=== PATIENT | female | born 1950 | race Caucasian/White ===

== ENCOUNTER 2022-10-28 11:51 | Inpatient (IN) | payer OTHER ==
--- NOTE | 2022-10-28 12:38 | RAD REPORT ---
EXAM DESCRIPTION: Garth Single View10/28/2022 12:22 pm CLINICAL HISTORY: Chest pain COMPARISON: 2018 FINDINGS: The lungs appear clear of acute infiltrate. The heart is normal size. Postsurgical changes involve the chest IMPRESSION: No acute abnormalities displayed
[2022-10-28 13:01] LABS: Absolute Lymphocytes (CBC) 2.6 K/uL (0.7-4.9); Lymphocytes % 29.8 % (15.3-44.8); MCV 92.5 fL (80-100); Platelets 308 thou/uL (152-406); RBC Red Blood Cell Count 4.86 M/uL (3.86-4.86)
[2022-10-28 13:20] LABS: Albumin 3.6 g/dL (3.4-5.0); Bilirubin Direct 0.2 mg/dL (0-0.2); Bilirubin Indirect, Calculated 0.2 mg/dL (0.2-0.8); Bilirubin Total 0.4 mg/dL (0.2-1.0); Magnesium 1.9 mg/dL (1.6-2.4); Potassium 3.7 mEq/L (3.5-5.1); Protein, Total 7.7 g/dL (6.4-8.2)
[2022-10-28 13:22] LABS: Troponin High Sensitivity 550.5 pg/mL (<58.9)
[2022-10-28] MEDS: ENOXAPARIN 80 MG/0.8 ML SQ SCH (14:00)
[2022-10-28] MEDS ORDERED: ENOXAPARIN 80 MG/0.8 ML SQ ONE (14:06)
--- NOTE | 2022-10-28 14:12 | ER ---
Nurse's Notes [facility] Name: Iliana Hair Age: 71 yrs Sex: Female : 1950 Arrival Date: 10/28/2022 Time: 11:51 Bed 3 Private MD: Diagnosis: Subsequent non-ST elevation (NSTEMI) myocardial infarction Presentation: 10/28 12:12 Chief complaint: Patient states: chest pain X 2 days , hx of [place], pain to left side of iw chest , also just feeling weak. Coronavirus screen: At this time, the client does not indicate any symptoms associated with coronavirus-19. Ebola Screen: Patient negative for fever greater than or equal to 101.5 degrees Fahrenheit, and additional compatible Ebola Virus Disease symptoms Patient denies exposure to infectious person. Patient denies travel to an Ebola-affected area in the 21 days before illness onset. No symptoms or risks identified at this time. Initial Sepsis Screen: Does the patient meet any 2 criteria? No. Patient's initial sepsis screen is negative. Does the patient have a suspected source of infection? No. Patient's initial sepsis screen is negative. Risk Assessment: Do you want to hurt yourself or someone else? Patient reports no desire to harm self or others. Onset of symptoms was October 26, 2022. 12:12 Method Of Arrival: Wheelchair iw 12:12 Acuity: BALWINDER 2 iw Triage Assessment: 12:19 General: Appears in no apparent distress. comfortable, Behavior is calm, cooperative. vg1 Pain: Complains of pain in chest Pain currently is 0 out of 10 on a pain scale. Quality of pain is described as pressure. Neuro: Level of Consciousness is awake, alert, obeys commands, Oriented to person, place, time, situation. Cardiovascular: Patient's skin is warm and dry. Respiratory: Airway is patent Respiratory effort is even, unlabored, Breath sounds are clear bilaterally. Denies shortness of breath. GI: No signs and/or symptoms were reported involving the gastrointestinal system. : No signs and/or symptoms were reported regarding the genitourinary system. Musculoskeletal: Circulation, motion, and sensation intact. Historical: - Allergies: 12:19 No Known Allergies; iw - Home Meds: 12:19 Metoprolol Tartrate Oral [Active]; iw - PMHx: 12:19 Hypertensive disorder; Hypercholesterolemia; iw - PSHx: 16:27 quadrupel bipass; cardiac stent; Coronary artery bypass graft; db - Immunization history:: Client reports receiving the 2nd dose of the Covid vaccine. - Social history:: Smoking status: "less than half a pack a day". - Family history:: not pertinent. Screenin:27 [facility] ED Fall Risk Assessment (Adult) History of falling in the last 3 months, db including since admission No falls in past 3 months (0 pts) Confusion or Disorientation No (0 pts) Intoxicated or Sedated No (0 pts) Impaired Gait No (0 pts) Mobility Assist Device Used No (0 pt) Altered Elimination No (0 pt) Score/Fall Risk Level 0 - 2 = Low Risk Oriented to surroundings, Maintained a safe environment. Abuse screen: Denies threats or abuse. Denies injuries from another. Nutritional screening: No deficits noted. Tuberculosis screening: No symptoms or risk factors identified. Assessment: 12:19 Reassessment: SEE TRIAGE. vg1 13:27 Reassessment: Patient appears in no apparent distress at this time. Patient and/or db family updated on plan of care and expected duration. Pain level reassessed. Patient is alert, oriented x 3, equal unlabored respirations, skin warm/dry/pink. General: Appears in no apparent distress. comfortable, Behavior is calm, cooperative. Pain:. Neuro: Level of Consciousness is awake, alert, obeys commands, Oriented to person, place, time, situation. 13:40 Reassessment: Hospitalist, DR Mayer at bedside. vg1 15:17 Reassessment: Patient appears in no apparent distress at this time. Patient and/or kc6 family updated on plan of care and expected duration. Pain level reassessed. Patient is alert, oriented x 3, equal unlabored respirations, skin warm/dry/pink. 16:03 Reassessment: Patient appears in no apparent distress at this time. Patient and/or kc6 family updated on plan of care and expected duration. Pain level reassessed. Patient is alert, oriented x 3, equal unlabored respirations, skin warm/dry/pink. 16:07 Reassessment: attempted to call report to second [facility] nurse station x2. no answer, line kc6 continually ringing. 16:24 Reassessment: Report given to JUDSON Mercado. Pain: Pain does not radiate. Pain began db gradually. Vital Signs: 12:12 BP 163 / 84; Pulse 72; Resp 18; Temp 97.6; Pulse Ox 97% on R/A; iw 12:19 BP 147 / 88; Pulse 67; Resp 18; Pulse Ox 97% on R/A; iw 13:52 BP 151 / 68; Pulse 70; Resp 20; Pulse Ox 98% on R/A; Weight 77.11 kg; vg1 14:30 BP 177 / 85; Pulse 70; Resp 19; Pulse Ox 97% on R/A; vg1 15:17 BP 176 / 83; Pulse 69; Resp 13 S; Pulse Ox 97% on R/A; kc6 16:00 BP 177 / 78; Pulse 69; Resp 16; Pulse Ox 95% on R/A; db ED Course: 11:53 Patient arrived in ED. mg5 11:55 Guru Bazzi MD is Attending Physician. rt 12:01 Keena Sinclair RN is Primary Nurse. vg1 12:13 Triage completed. iw 12:13 Arm band placed on. iw 12:20 Inserted saline lock: 20 gauge in right antecubital area, using aseptic technique. vg1 Blood collected. 12:20 No provider procedures requiring assistance completed. Patient maintains SpO2 vg1 saturation greater than 95% on room air. 12:24 XRAY Chest (1 view) In Process Unspecified. EDMS 13:26 Patient has correct armband on for positive identification. Placed in gown. Bed in low db position. Call light in reach. Side rails up X 1. Client placed on continuous cardiac and pulse oximetry monitoring. NIBP monitoring applied. Warm blanket given. 14:12 Jarret Mayer MD is Hospitalizing Provider. rt 15:17 Report received from Stephanie Sinclair RN. kc6 16:27 Patient admitted, IV remains in place. db 16:32 Provided Education on: ADMITTED. db Administered Medications: 14:06 Drug: Enoxaparin Sub-Q 1 mg/kg Route: Sub-Q; Site: right lower abdomen; vg1 14:58 Follow up: Response: No adverse reaction vg1 Medication: 13:30 VIS not applicable for this client. vg1 Outcome: 14:12 Decision to Hospitalize by Provider. rt 16:32 Admitted to ER Hold. [facility]. db 16:32 Condition: stable 16:32 Instructed on the need for admit. 16:49 Patient left the ED. db Signatures: Dispatcher [employer] EDVirginie Oseguera RN RN iw Keena Sinclair RN RN vg1 Linnea Cuevas RN RN kc6 Isa Abbott RN RN db Guru Bazzi MD MD rt [place], [place] mg5 Corrections: (The following items were deleted from the chart) 12:19 General: Appears in no apparent distress. comfortable, Behavior is calm, vg1 cooperative, iw 12:19 Pain: Complains of pain in chest Pain currently is 0 out of 10 on a pain scale. vg1 Quality of pain is described as pressure, iw 12:19 Neuro: Level of Consciousness is awake, alert, obeys commands, Oriented to vg1 person, place, time, situation, iw 12:19 Cardiovascular: Patient's skin is warm and dry. [email or web address] 12:19 Respiratory: Airway is patent Respiratory effort is even, unlabored, Breath vg1 sounds are clear bilaterally. Denies shortness of breath iw 12:19 GI: No signs and/or symptoms were reported involving the gastrointestinal system. vg1 iw 12:19 : No signs and/or symptoms were reported regarding the genitourinary system. [email or web address] 12:19 Musculoskeletal: Circulation, motion, and sensation intact. [email or web address]
--- NOTE | 2022-10-28 14:12 | EDPHYS ---
Physician Documentation [facility] Name: Iliana Hair Age: 71 yrs Sex: Female : 1950 Arrival Date: 10/28/2022 Time: 11:51 Bed 3 Private MD: ED Physician Guru Bazzi HPI: 10/28 15:55 This 71 yrs old Female presents to ER via Wheelchair with complaints of Chest Pain, Arm rt Pain - Left, Back Pain - Left. 15:55 Patient with history of coronary artery disease presents to the ED with intermittent rt chest pain and shortness of breath for the past 2 days. She states that she has no pain currently. She denies other acute complaint at this time. Symptoms are moderate severity, nonradiating, aching nature, no other aggravating relieving factors.. Historical: - Allergies: 12:19 No Known Allergies; iw - Home Meds: 12:19 Metoprolol Tartrate Oral [Active]; iw - PMHx: 12:19 Hypertensive disorder; Hypercholesterolemia; iw - PSHx: 16:27 quadrupel bipass; cardiac stent; Coronary artery bypass graft; db - Immunization history:: Client reports receiving the 2nd dose of the Covid vaccine. - Social history:: Smoking status: "less than half a pack a day". - Family history:: not pertinent. ROS: 15:55 Constitutional: Negative for fever, chills, and weight loss, MS/Extremity: Negative for rt injury and deformity, Skin: Negative for injury, rash, and discoloration, Neuro: Negative for headache, weakness, numbness, tingling, and seizure, Psych: Negative for depression, anxiety, suicide ideation, homicidal ideation, and hallucinations. 15:55 Cardiovascular: Positive for chest pain, Negative for edema. 15:55 Respiratory: Positive for shortness of breath, Negative for cough. Exam: 15:55 ECG was reviewed by the Attending Physician. rt Vital Signs: 12:12 BP 163 / 84; Pulse 72; Resp 18; Temp 97.6; Pulse Ox 97% on R/A; iw 12:19 BP 147 / 88; Pulse 67; Resp 18; Pulse Ox 97% on R/A; iw 13:52 BP 151 / 68; Pulse 70; Resp 20; Pulse Ox 98% on R/A; Weight 77.11 kg; vg1 14:30 BP 177 / 85; Pulse 70; Resp 19; Pulse Ox 97% on R/A; vg1 15:17 BP 176 / 83; Pulse 69; Resp 13 S; Pulse Ox 97% on R/A; kc6 16:00 BP 177 / 78; Pulse 69; Resp 16; Pulse Ox 95% on R/A; db MDM: 12:03 Patient medically screened. rt 15:55 Differential diagnosis: abnormal EKG, acute myocardial infarction, acute pericarditis, rt chest wall pain, congestive heart failure pneumonia, pneumothorax, unstable angina. HEART Score: History: Moderately Suspicious (1), ECG: Normal (0), Age: > or = 65 years (2), Risk Factors: > or = 3 Risk factors for atherosclerotic disease (2), Troponin: > or = 3 x Normal Limit (2), Total Score = 7. The patient was not given aspirin in the Emergency Department. Patient reports taking aspirin within the past 24 hours. Data reviewed: vital signs, nurses notes. Consideration of Admission/Observation Patient was admitted/placed on observation. Management of patient was discussed with the following: Director Of Extension Work: Discussed with cardiology. I considered the following discharge prescriptions or medication management in the emergency department Medications were administered in the Emergency Department. See MAR. Independent interpretation of the following test(s) in the Emergency Department X-Ray: My interpretation is No consolidation seen on interpretation of x-ray images. Test considered but Not performed: CT: Low suspicion for PE, CT angiogram not indicated. Care significantly affected by the following chronic conditions: Hypertension. Counseling: I had a detailed discussion with the patient and/or guardian regarding: the historical points, exam findings, and any diagnostic results supporting the discharge/admit diagnosis, the presence of at least one elevated blood pressure reading (>120/80) during this emergency department visit, lab results, radiology results, the need for further work-up and treatment in the hospital. 10/28 12:11 Order name: Basic Metabolic Panel; Complete Time: 13:26 rt 10/28 12:11 Order name: CBC with Diff; Complete Time: 13:26 rt 10/28 12:11 Order name: LFT's; Complete Time: 13:26 rt 10/28 12:11 Order name: Magnesium; Complete Time: 13:26 rt 10/28 12:11 Order name: NT PRO-BNP; Complete Time: 13:26 rt 08 12:11 Order name: Troponin HS; Complete Time: 13:26 rt 08 15:39 Order name: Urinalysis w/ reflexes EDMS 10/28 15:39 Order name: Basic Metabolic Panel EDMS 10/28 15:39 Order name: Basic Metabolic Panel EDMS 10/28 15:39 Order name: CBC with Automated Diff EDMS 10/28 15:39 Order name: CBC with Automated Diff EDMS 10/28 15:39 Order name: Magnesium EDMS 10/28 15:39 Order name: Magnesium EDMS 10/28 15:39 Order name: Troponin High Sensitivity EDMS 10/28 15:39 Order name: Troponin High Sensitivity EDMS 10/28 15:39 Order name: Troponin High Sensitivity EDMS 10/28 15:39 Order name: Troponin High Sensitivity EDMS 10/28 12:11 Order name: XRAY Chest (1 view); Complete Time: 12:41 rt 10/28 12:11 Order name: EKG; Complete Time: 12:11 rt 10/28 15:37 Order name: CONS Physician Consult EDMS 10/28 15:39 Order name: Heart Healthy EDMS 10/28 15:39 Order name: NPO EDMS 10/28 12:11 Order name: Cardiac monitoring; Complete Time: 12:19 rt 08 12:11 Order name: EKG - Nurse/Tech; Complete Time: 12:19 rt 10/28 12:11 Order name: IV Saline Lock; Complete Time: 12:19 rt 08 12:11 Order name: Labs collected and sent; Complete Time: 12:19 rt 10/28 12:11 Order name: O2 Per Protocol; Complete Time: 12:19 rt 08 12:11 Order name: O2 Sat Monitoring; Complete Time: 12:19 rt EC:55 Rate is 70 beats/min. Rhythm is regular, Normal Sinus Rhythm with No ectopy. QRS [place] rt is Normal. [place] interval is normal. QRS interval is normal. QT interval is normal. No Q waves. T waves are Normal. No ST changes noted. Interpreted by me. Administered Medications: 14:06 Drug: Enoxaparin Sub-Q 1 mg/kg Route: Sub-Q; Site: right lower abdomen; vg1 14:58 Follow up: Response: No adverse reaction vg1 Disposition: 15:55 Critical Care:. rt Disposition Summary: 10/28/22 14:12 Hospitalization Ordered Hospitalization Status: Inpatient Admission rt Provider: Jarret Mayer rt [facility] rt Condition: Fair rt Problem: new rt Symptoms: have improved rt Bed/Room Type: Standard rt Room Assignment: 202(10/28/22 16:01) eb Diagnosis - Subsequent non-ST elevation (NSTEMI) myocardial infarction rt Forms: - Medication Reconciliation Form rt - SBAR form rt Critical care time excluding procedures: 15:55 Critical care time: Bedside Care: 30 minutes, Consultation: 10 minutes. Total time: 40 rt minutes Signatures: Dispatcher [employer] EDVirginie Oseguera RN RN iw Jeannie Saha Victoria RN RN vg1 Isa Abbott RN RN db Guru Bazzi MD MD rt Corrections: (The following items were deleted from the chart) 16:01 14:12 rt eb
--- NOTE | 2022-10-28 14:47 | P.HP ---
Certification for Inpatient Patient admitted to: Inpatient With expected LOS: >2 Midnights Practitioner: I am a practitioner with admitting privileges, knowledge of patient current condition, hospital course, and medical plan of care. Services: Services provided to patient in accordance with Admission requirements found in Title 42 Section 412.3 of the Code of Federal Regulations Patient History Date of Service: 10/28/22 Reason for admission: NSTEMI History of Present Illness: 71 yo F, PMH: Hypertension, Hypercholesterolemia, h/o of DC s/p CABGx4 (), current smoker Presents to ED due to 2 days of intermittent chest pressure/tightness. Symptoms began while sitting down on her cough. Her chest pressure is substernal and lasts a few seconds to minutes and has ~3-4 episodes a day. She reports prior DC and had CABGx4 in , continues to smoke, currently down to 1/2 ppd. Takes aspirin 325mg and anti-hypertensive medications. Recently saw Dr. Garcia ~3 months ago for routine check up. She reports undergoing echo and stress test which she was told were normal. Denies any recent fever, no rashes. Denies UTI symptoms. No n/v/d. No shortness of breath. No edema. Denies vision changes. Dr. Garcia notified and will see as consult. In the ED, labwork was rather unremarkable except for troponin: 550, BNP: 1049. Chest xray was negative for any acute abnormalities. Allergies No Known Allergies Allergy (Verified 10/28/22 17:10) Home Medications: Aspirin Chewable [Aspirin Chewable*] 325 mg PO DAILY 10/28/22 Atorvastatin Calcium [Lipitor] 40 mg PO BEDTIME 10/28/22 Metoprolol Tartrate [Lopressor] 50 mg PO BID 10/28/22 Valsartan/Hydrochlorothiazide [Valsartan-Hctz 160-25 mg Tab] 1 tab PO DAILY 09/14 - Past Medical/Surgical History -: h/o DC -: Hypertension -: Hypercholesterolemia -: CABGx4 - -: Scoliosis - Family History Family History: Reviewed- Non-Contributory - Social History Smoking Status: Current every day smoker (< 1/2 pack a day) Alcohol use: No Place of Residence: Home Review of Systems 10-point ROS is otherwise unremarkable Physical Examination - Studies Laboratory Data (last 24 hrs) 10/28/22 10/28/22 12:15 12:15 WBC 8.80 Hgb 15.1 H Hct 45.0 Plt Count 308 Sodium 142 Potassium 3.7 BUN 23 H Creatinine 1.03 H Glucose 121 H Magnesium 1.9 Total Bilirubin 0.4 AST 27 ALT 30 Alkaline Phosphatase 97 Assessment and Plan - Advance Directives Does patient have a Living Will: No Does patient have a Durable POA for Healthcare: No - Code Status/Comfort Care Code Status Assessed: Yes Code Status: Full Code Physician Review Additional Text: Physical Exam: GEN: Alert, oriented, NAD HEENT: Normal conjunctiva, sclera anicteric CV: Regular rate and rhythm, no edema Pulm: Nonlabored respirations on room air, clear bilaterally ABD: Soft, nontender, nondistended MSK: No joint tenderness, no contractions Integumentary: No rashes, no lesions Neuro: Normal speech, normal affect vitals reviewed Problem List: NSTEMI; Unstable angina h/o DC s/p CABGx4 () Hypertension Hypercholesterolemia Nicotine dependence reports outpatient workup ~[address] Garcia stress test, echo okay per patient CXR (10/28): no acute abnormalities Cardiology consulted continue therapeutic lovenox - received first dose in ED Trend troponins - elevated (550) BNP: 1049 telemetry aspirin given in ED, continue continue home metoprolol - 50mg BID morphine PRN SL nitro PRN confirm home medications, restart as appropriate VTE: therapeutic lovenox Code: Full Home: ~2 days possible cath tomorrow, pending cardio consult Time Spent Managing Pts Care (In Minutes): 70
[2022-10-28] MEDS ORDERED: ONDANSETRON 4 MG/2 ML VIAL IV PRN (15:35)
[2022-10-28] MEDS ORDERED: MORPHINE 2 MG/ML SYR IV PRN (15:38)
[2022-10-28] MEDS ORDERED: NITROGLYCERIN 0.4 MG/TAB SL PRN (15:38)
[2022-10-28] MEDS: METOPROLOL TAR 50 MG TAB PO SCH (16:43)
[2022-10-28] MEDS ORDERED: METOPROLOL TAR 50 MG TAB ONE (16:52)
[2022-10-28 19:50] LABS: Specific Gravity 1.013 (1.005-1.030); Urine Bacteria None Seen /HPF (<20); Urine Bilirubin NEGATIVE (Negative); Urine Blood 1+ (Negative); Urine Clarity Clear (Clear); Urine Color Light-Yellow (Yellow); Urine Glucose NEGATIVE (Negative); Urine Mucus Slight /HPF (None Seen); Urine Protein NEGATIVE (Negative); Urine Urobilinogen Normal (Normal)
[2022-10-29] MEDS: ENOXAPARIN 80 MG/0.8 ML SQ SCH ×2 (02:35→13:48)
[2022-10-29 03:15] LABS: Absolute Lymphocytes (CBC) 4.1 K/uL (0.7-4.9); Hematocrit 41.3 % (36.0-45.0); Lymphocytes % 42.9 % (15.3-44.8); MCV 92.1 fL (80-100); MPV 7.9 fL (7.6-11.3); Platelets 268 thou/uL (152-406); RBC Red Blood Cell Count 4.48 M/uL (3.86-4.86)
[2022-10-29 03:46] LABS: Magnesium 1.9 mg/dL (1.6-2.4); Potassium 3.5 mEq/L (3.5-5.1)
[2022-10-29 04:01] LABS: Troponin High Sensitivity 524.6 pg/mL (<58.9)
[2022-10-29] MEDS ORDERED: KCL 20 MEQ/100 mL IVPB 20 MEQ/100 ML BAG IV SCH (06:00)
--- NOTE | 2022-10-29 07:00 | P.PN ---
Date of Service: 10/29/22 Subjective: feeling better today - back to normal self chest pressure resolved overnight no new / worsening problems ROS: 10 point ROS as noted above, otherwise negative Physical Exam: GEN: Alert, oriented, NAD HEENT: Normal conjunctiva, sclera anicteric CV: Regular rate and rhythm, no edema Pulm: Nonlabored respirations on room air ABD: Soft, nontender, nondistended Neuro: Normal speech, normal affect vitals reviewed Problem List: NSTEMI; Unstable angina h/o [place] s/p CABGx4 () Hypertension Hypercholesterolemia Nicotine dependence reports outpatient workup ~[address] Garcia stress test, echo okay per patient CXR (10/28): no acute abnormalities Cardiology consulted cardiac cath planned for tomorrow continue therapeutic lovenox - received first dose in ED troponins elevated x4 - peak 627 BNP: 1049 telemetry given aspirin in ED cont morphine PRN, SL nitro PRN continue home medications including - Valsartan, statin, metoprolol VTE: therapeutic lovenox Code: Full Home: ~1 day Pending cath
[2022-10-29] MEDS: METOPROLOL TAR 50 MG TAB PO SCH ×2 (08:40→16:53)
[2022-10-29] MEDS ORDERED: HYDROCHLOROTHIAZIDE PO SCH (09:16)
[2022-10-29] MEDS ORDERED: VALSARTAN PO SCH (09:16)
[2022-10-29] MEDS: VALSARTAN 160 MG TAB PO SCH (09:20)
[2022-10-29] MEDS: hydroCHLOROthiazide 25 MG TAB PO SCH (10:41)
[2022-10-29] MEDS ORDERED: POTASSIUM CL SA 10 MEQ TAB PO ONE (11:00)
--- NOTE | 2022-10-29 13:03 | EKG ---
Test Date: 2022-10-28 Test Time: 12:08:09 Detective: AP MEASUREMENT RESULTS: Intervals: Rate: 70 DE: 136 QRSD: 84 QT: 400 QTc: 432 [place]: P: 27 DE: 136 QRS: 34 T: 68 INTERPRETIVE STATEMENTS: Normal sinus rhythm Normal ECG Compared to ECG 07/28/1996 05:29:00 Myocardial infarct finding no longer present Electronically Signed On 10-29-22 13:00:37 CDT by Rip Garcia
[2022-10-29 17:49] VITALS: BMI 25.7
[2022-10-29] MEDS: ATORVASTATIN 40 MG TAB PO SCH (20:46)
[2022-10-30 04:24] LABS: Potassium 4.2 mEq/L (3.5-5.1)
[2022-10-30] MEDS ORDERED: NA CHLORIDE 0.9% 1,000 ML ONE (06:25)
[2022-10-30] MEDS ORDERED: NA CHLORIDE 0.9% 1,000 ML IV SCH (07:00)
[2022-10-30] MEDS: METOPROLOL TAR 50 MG TAB PO SCH ×3 (08:00→20:40)
[2022-10-30] MEDS: hydroCHLOROthiazide 25 MG TAB PO SCH (09:00)
[2022-10-30] MEDS ORDERED: HYDROCHLOROTHIAZIDE PO SCH (09:00)
[2022-10-30] MEDS: VALSARTAN 160 MG TAB PO SCH (09:00)
[2022-10-30] MEDS ORDERED: VALSARTAN PO SCH (09:00)
[2022-10-30] MEDS ORDERED: HEPA 1000U/500MLS 2,000 UNIT/1,000 ML BAG IV ONE (15:46)
[2022-10-30] MEDS ORDERED: LIDOCAINE 1% 20 ML MDV ONE (15:46)
[2022-10-30] MEDS ORDERED: FENTANYL CITR 100 MCG/2 ML ONE ×3 (15:47→17:03)
[2022-10-30] MEDS ORDERED: HEPARIN 10,000 UNIT/10 ML VIAL IV ONE (15:48)
[2022-10-30] MEDS ORDERED: TICAGRELOR 90 MG TABLET PO ONE (15:48)
[2022-10-30] MEDS ORDERED: ATROPINE SULF 1 MG/10 ML SYR IV ONE (15:48)
[2022-10-30] MEDS ORDERED: MIDAZOLAM HCL 2 MG/2 ML INJ ONE ×2 (15:48→16:39)
[2022-10-30] MEDS ORDERED: CLOPIDOGREL 75 MG TABLET ONE (15:48)
--- NOTE | 2022-10-30 16:24 | CON ---
Date of Consultation: 10/29/2022 Reason For Consultation: Chest pain and elevated troponin. History Of Present Illness: A 71-year-old female with history of dyslipidemia, hypertension, coronar y artery disease, status post CABG in 2019, 4-vessel. She currently is a smoker, presented with inte rmittent chest pain and tightness along with cough and some shortness of breath, mild lower extremity edema. Pain is related to exertion. She denies having any other complaints. No nausea, vomiting, or diarrhea. Past Medical History: As outlined above in the HPI. Medications: Refer to reconciliation sheet for detailed list. Allergies: NO KNOWN DRUG ALLERGIES. Family History: No premature coronary artery disease or cancer. Social History: She is active smoker. Does not drink or use any drugs. Review of Systems: All systems reviewed and they were negative except what mentioned in HPI. Physical Examination: Vital Signs: Reviewed. Head and Neck: Pupils are equal, reactive to light. Intact eye movements. No JVD. No cervical lym phadenopathy. Neck is supple. Thyroid is not enlarged. Lungs: Clear to auscultation bilaterally. No rhonchi, wheezing, or crackles. No accessory muscle u se. Heart: Regular rate and rhythm. No extra sounds. Abdomen: Soft, nontender. Bowel sounds positive. No organomegaly. No masses or hernia. No rigidi ty or rebound. Extremities: No edema, clubbing, or cyanosis. Intact pulses. Skin: No rash. Neurologic: Alert, awake, oriented x3. No acute focal deficits appreciated. Investigations: Troponin peaked at 658 and trending down. BUN 21, creatinine 0.82, and hemoglobin i s 13.9 with white blood cell count is 9.6. Assessment And Recommendations: 1.Non-ST elevation myocardial infarction. Continue aspirin and statin, and keep n.p.o. past midnigh t for coronary angiogram tomorrow and continue IV Lovenox. 2.Dyslipidemia. Continue statin. 3.Active smoker. The patient was counseled to quit. 4.Hypertension. Blood pressure is borderline. Resume home medication and adjust further if needed. SR/MODL Voice ID: [id number] Report ID: [id number]
--- NOTE | 2022-10-30 16:30 | PN ---
Date of Progress Note: 10/30/2022 Subjective: Seen by bedside. No further chest pain. Review of Systems: No chest pain, shortness of breath, orthopnea, cough. No nausea, vomiting, diarrhea. All other syst ems reviewed and they were negative. Physical Examination: Vital Signs: Reviewed. Head and Neck: Pupils are equal, reactive to light. Intact eye movements. No JVD. No cervical lym phadenopathy. Neck is supple. Thyroid is not enlarged. Lungs: Clear to auscultation bilaterally. No rhonchi, wheezing, or crackles. No accessory muscle u se. Heart: Regular rate and rhythm. No extra sounds. Abdomen: Soft, nontender. Bowel sounds positive. No organomegaly. No masses or hernia. No rigidi ty or rebound. Extremities: No edema, clubbing, or cyanosis. Intact pulses. Skin: No rash. Neurologic: Alert, awake, oriented x3. No acute focal deficits appreciated. Investigations: BUN 25, creatinine 0.9. Assessment And Recommendations: 1.Non-ST elevation myocardial infarction. She is n.p.o. We will plan for coronary angiogram today. Hold morning dose of Lovenox and continue aspirin. Further plan after the angiogram. 2.Dyslipidemia. Continue statin. 3.Hypertension. Blood pressure is controlled. Continue current management. /HANNA Voice ID: [id number] Report ID: [id number]
--- NOTE | 2022-10-30 17:30 | OP ---
Date of Procedure: 10/30/2022 Surgeon: SERGIO CARRIZALES Procedures Performed: 1.Selective coronary angiogram with bypass graft study. 2.Left heart catheterization. Indication: Non-ST elevation myocardial infarction. Access: Right femoral artery 6-Burkinan closed with StarClose. Complications: None. Bleeding: Less than 20 mL. Anesthesia: Total sedation time was 1 hour, used fentanyl and Versed. Description Of Procedure: After risks, benefits, and alternatives were explained, the patient agreed to procedure and signed informed consent. The patient was brought into the cardiac catheterization laboratory, prepped and draped in the usual sterile fashion. Then, I accessed right femoral artery u sing micropuncture kit, ultrasound guidance, fluoroscopy, and placed 6-Burkinan [place] sheath and too k a 6-Burkinan JL4 catheter over J-wire into the aortic root, engaged left main, took standard views an d then exchanged for 6-Burkinan JR4 catheter into the aortic root, engaged the RCA and the SVG to OM, S VG to RCA and then occluded SVG, and took standard views and then engaged the EDWARDS and took standard views, and then removed the catheter and removed the sheath. StarClose was used for closure with goo d hemostasis. Findings: 1.Left main; proximal 50%, distal 90%. 2.LAD; 100% occluded ostially. 3.Left circumflex; 99% occluded ostially. 4.RCA is 100% occluded proximally. Graft Study: 1.Widely patent EDWARDS to LAD. 2.SVG to OM is patent with proximal 60% stenosis with ulceration and distal at the touchdown 95% to 99% stenosis with a thrombus present. 3.Patent SVG graft to RCA, but it is dilated with slow flow. 4.There is an SVG graft that is occluded. I am not sure probably was connected to 1 of the diagonal s. 5.Elevated LVEDP at 26 mmHg. Conclusions: 1.Severe multivessel [place] coronary artery disease, basically occluded to all major arteries. 2.Patent EDWARDS to LAD and patent SVG to RCA and diseased SVG to OM as outlined above. 3.Elevated LVEDP. Plan: I will start her on heparin 4 hours post sheath removal and revisit in 48 to 72 hours and put her on dual anti-platelet therapy and might plan to do a PCI at that time. The patient is chest pain free. We will obtain an echo and plan as above. SR/HANNA Voice ID: [id number] Report ID: [id number]
[2022-10-30] MEDS: ATORVASTATIN 40 MG TAB PO SCH (20:35)
[2022-10-30] MEDS: HEPARIN/D5W 25,000 UNIT/500 ML BAG IV PRN (20:35)
[2022-10-31] MEDS: VALSARTAN 160 MG TAB PO SCH (08:17)
[2022-10-31] MEDS: hydroCHLOROthiazide 25 MG TAB PO SCH (08:18)
[2022-10-31] MEDS: METOPROLOL TAR 50 MG TAB PO SCH ×2 (08:21→19:41)
--- NOTE | 2022-10-31 12:48 | P.PN ---
Subjective Date of Service: 10/30/22 Chief Complaint: NSTEMI Patient denies any chest pain or shortness of breath. Physical Examination - Vital Signs Temperature: 97.7 F Pulse: 61 Respirations: 16 Pulse Ox (%): 96 Assessment And Plan - Plan Physical Exam: GEN: Alert, oriented, NAD HEENT: Normal conjunctiva, sclera anicteric CV: Regular rate and rhythm, no edema Pulm: Clear to auscultation bilaterally ABD: Soft, nontender, nondistended Neuro: Normal speech, normal affect vitals reviewed Problem List: NSTEMI; Unstable angina h/o PA s/p CABGx4 () Hypertension Hypercholesterolemia Nicotine dependence Plan: Troponins elevated x4 - peak 627 Cardiology consulted Patient seen by Dr. Garcia who has scheduled cardiac cath for today. Heparin drip and repeat PCI by Dr. Garcia. Monitor vitals and for chest pain. Continue to telemetry. Dual antiplatelet per Dr. Garcia. Statin, metoprolol. Continue valsartan VTE: On heparin Code: Full Home: Home upon discharge.
--- NOTE | 2022-10-31 13:01 | P.PN ---
Subjective Date of Service: 10/31/22 Chief Complaint: NSTEMI Patient has no new complaint. Status postcardiac cath yesterday. Physical Examination - Vital Signs Temperature: 97.7 F Blood Pressure: 132/61 Pulse: 61 Respirations: 16 Pulse Ox (%): 96 Assessment And Plan - Plan Physical Exam: GEN: Alert, oriented, NAD HEENT: Normal conjunctiva, sclera anicteric CV: Regular rate and rhythm, no edema Pulm: Clear to auscultation bilaterally ABD: Soft, nontender, nondistended Neuro: Normal speech, normal affect vitals reviewed Problem List: NSTEMI; Unstable angina h/o OR s/p CABGx4 () Hypertension Hypercholesterolemia Nicotine dependence Plan: Troponins elevated x4 - peak [address] Garcia who performed cardiac cath. Cardiac cath report severe multiple vessel diseases. Heparin drip and repeat PCI by Dr. Garcia. Monitor vitals and for chest pain. Continue to telemetry. Dual antiplatelet per Dr. Garcia. Statin, metoprolol. Continue valsartan VTE: On heparin Code: Full Home: Home upon discharge.
[2022-10-31] MEDS: CLOPIDOGREL 75 MG TABLET PO SCH (13:05)
[2022-10-31] MEDS: ASPIRIN EC 81 MG TAB PO SCH (19:41)
[2022-10-31] MEDS: ACETAMINOPHEN 500 MG TAB PO PRN (19:44)
[2022-10-31] MEDS: ATORVASTATIN 40 MG TAB PO SCH (20:01)
[2022-10-31] MEDS ORDERED: CLOPIDOGREL 75 MG TABLET PO ONE (21:00)
--- NOTE | 2022-10-31 21:35 | PN ---
Date of Progress Note: 10/31/2022 Subjective: Seen by bedside. No chest pain. Tolerated anticoagulants very well. Review of Systems: No chest pain, shortness of breath, orthopnea, cough. No nausea, vomiting, diarrhea. All other syst ems reviewed are negative. Physical Examination: Vital signs: Reviewed. Head and Neck: Pupils are equal, reactive to light. Intact eye movements. No JVD. No cervical lym phadenopathy. Neck: Supple. Thyroid is not enlarged. Lungs: Clear to auscultation bilaterally. No rhonchi, wheezing, or crackles. No accessory muscle u se. Heart: Regular rate and rhythm. No extra sounds. Abdomen: Soft, nontender. Bowel sounds positive. No organomegaly. No masses or hernia. No rigidi ty or rebound. Extremities: No edema, clubbing, or cyanosis. Intact pulses. Skin: No rash. Neurologic: Alert, awake, oriented x3. No acute focal deficits appreciated. Investigations: BUN 25, creatinine 0.9. Troponin peaked at 627, trending down and on echo, her ejec tion fraction is normal. Assessment/recommendations: 1.Non-ST elevation myocardial infarction, status post coronary angiogram yesterday. She has large t hrombus burden on the SVG graft to OM. Plan to continue dual antiplatelet with aspirin, Plavix, and continue IV heparin for at least 2 more days and we will revisit the coronaries either by Saturday or e gia next week and hoping that the thrombus burden is diminished and then we will plan for percutaneo us coronary intervention. 2.Dyslipidemia. Start the patient on Lipitor 40 mg at bedtime. 3.Hypertension. Blood pressure is controlled. SR/MODL Voice ID: [id number] Report ID: [id number]
--- NOTE | 2022-11-01 08:09 | ECHO ---
HEIGHT: 5 ft 8 in WEIGHT: 168 lb 12.8 oz DATE OF STUDY: 10/31/[address]: Rip Garcia 2-DIMENSIONAL: YES M.MODE: YES DOPPLER: YES COLOR FLOW: YES TDS: PORTABLE: YES DEFINITY: BUBBLE STUDY: DIAGNOSIS: POST CATH CARDIAC HISTORY: CATHERIZATION: YES SURGERY: YES PROSTHETIC VALVE: NO PACEMAKER: NO MEASUREMENTS (cm) DIASTOLIC (NORMALS) SYSTOLIC (NORMALS) IVSd 0.9 (0.6-1.2) LA Diam 2.6 (1.9-4.0) LVEF 72% LVIDd 4.5 (3.5-5.7) LVIDs 2.7 (2.0-3.5) %FS 41% LVPWd 1.0 (0.6-1.2) Ao Diam 2.4 (2.0-3.7) 2 DIMENSIONAL ASSESSMENT: RIGHT ATRIUM: NORMAL LEFT ATRIUM: NORMAL RIGHT VENTRICLE: NORMAL LEFT VENTRICLE: NORMAL TRICUSPID VALVE: NORMAL MITRAL VALVE: CALCIFIED MITRAL VALVE PULMONIC VALVE: NORMAL AORTIC VALVE: NORMAL PERICARDIAL EFFUSION: NONE AORTIC ROOT: NORMAL LEFT VENTRICULAR WALL MOTION: NORMAL DOPPLER/COLOR FLOW: NORMAL COMMENTS: 1. NORMAL LEFT VENTRICULAR EJECTION FRACTION 60-65% 2. NORMAL WALL MOTION 3. NORMAL DIASTOLIC FUNCTION TECHNOLOGIST: DONTRELL VASQUEZ
[2022-11-01] MEDS: ASPIRIN EC 81 MG TAB PO SCH (08:30)
[2022-11-01] MEDS: VALSARTAN 160 MG TAB PO SCH (08:30)
[2022-11-01] MEDS: hydroCHLOROthiazide 25 MG TAB PO SCH (08:31)
[2022-11-01] MEDS: CLOPIDOGREL 75 MG TABLET PO SCH (08:31)
[2022-11-01] MEDS: METOPROLOL TAR 50 MG TAB PO SCH ×2 (08:31→17:33)
[2022-11-01] MEDS: HEPARIN/D5W 25,000 UNIT/500 ML BAG IV PRN (08:32)
--- NOTE | 2022-11-01 13:29 | P.PN ---
Subjective Date of Service: 11/01/22 Chief Complaint: NSTEMI Patient has no new complaint. Status postcardiac cath 10/30/2022. She denies any chest pain. Physical Examination - Vital Signs Temperature: 97.8 F Blood Pressure: 133/70 Pulse: 64 Respirations: 16 Pulse Ox (%): 97 Assessment And Plan - Plan Physical Exam: GEN: Alert, oriented, NAD HEENT: Normal conjunctiva, sclera anicteric CV: Regular rate and rhythm, no edema Pulm: Clear to auscultation bilaterally ABD: Soft, nontender, nondistended Neuro: Normal speech, normal affect vitals reviewed Problem List: NSTEMI; Unstable angina h/o [place] s/p CABGx4 () Hypertension Hypercholesterolemia Nicotine dependence Plan: Troponins elevated x4 - peak [address] Garcia who performed cardiac cath. Cardiac cath report severe multiple vessel diseases. Heparin drip and repeat PCI by Dr. Garcia. Monitor vitals and for chest pain. Continue to telemetry. Dual antiplatelet per Dr. Garcai. Statin, metoprolol. Continue valsartan VTE: On heparin drip Code: Full Home: Home upon discharge.
--- NOTE | 2022-11-01 15:03 | PN ---
Date of Progress Note: 11/01/2022 Subjective: Seen by bedside. No chest pain. Review of Systems: No chest pain, shortness of breath, orthopnea, cough. No nausea, vomiting, diarrhea. All other syst ems reviewed are negative. Physical Examination: Vital Signs: Reviewed. Head and Neck: Pupils are equal, reactive to light. Intact eye movements. No JVD. No cervical lym phadenopathy. Neck is supple. Thyroid is not enlarged. Lungs: Clear to auscultation bilaterally. No rhonchi, wheezing, or crackles. No accessory muscle u se. Heart: Regular rate and rhythm. No extra sounds. Abdomen: Soft, nontender. Bowel sounds positive. No organomegaly. No masses or hernia. No rigidi ty or rebound. Extremities: No edema, clubbing, cyanosis. Intact pulses. Skin: No rashes Neurologic: Alert, awake, oriented x3. No focal deficits appreciated. Investigations: BUN 25, creatinine 0.9. Hemoglobin 13.9. Assessment/recommendations: 1.Non-ST elevation myocardial infarction. SVG graft has large burden of thrombus. Continue anticoa gulation through the weekend and plan for a coronary angiogram on Saturday to plan for percutaneous cor onary intervention of the SVG graft to the OM and continue aspirin and Plavix. On echo, her ejection fraction is entirely normal and no significant suture abnormality. 2.Dyslipidemia. Continue statin. 3.Hypertension. Blood pressure is controlled. Continue current treatment. SR/MODL Voice ID: [id number] Report ID: [id number]
[2022-11-01] MEDS: POLYETHYL GLY 3350 17 GM/DOSE PO SCH (20:48)
[2022-11-01] MEDS: ATORVASTATIN 40 MG TAB PO SCH (20:51)
[2022-11-02 03:39] LABS: Potassium 3.4 mEq/L (3.5-5.1)
[2022-11-02] MEDS: CLOPIDOGREL 75 MG TABLET PO SCH (08:18)
[2022-11-02] MEDS: hydroCHLOROthiazide 25 MG TAB PO SCH (08:18)
[2022-11-02] MEDS: POLYETHYL GLY 3350 17 GM/DOSE PO SCH ×2 (08:18→20:01)
[2022-11-02] MEDS: ASPIRIN EC 81 MG TAB PO SCH (08:19)
[2022-11-02] MEDS: METOPROLOL TAR 50 MG TAB PO SCH ×2 (08:19→16:35)
[2022-11-02] MEDS: VALSARTAN 160 MG TAB PO SCH (08:20)
[2022-11-02] MEDS ORDERED: POTASSIUM 25 MEQ EFFERV TAB PO ONE (09:00)
--- NOTE | 2022-11-02 12:18 | P.PN ---
Subjective Date of Service: 11/02/22 Chief Complaint: NSTEMI Patient has no new complaint. She denies any chest pain. No issues overnight. Physical Examination - Vital Signs Temperature: 97.7 F Blood Pressure: 100/64 Pulse: 76 Respirations: 16 Pulse Ox (%): 97 Assessment And Plan - Plan Physical Exam: GEN: Alert, oriented, NAD HEENT: Normal conjunctiva, sclera anicteric CV: Regular rate and rhythm, no edema Pulm: Clear to auscultation bilaterally ABD: Soft, nontender, nondistended Neuro: Normal speech, normal affect vitals reviewed Problem List: NSTEMI; Unstable angina h/o [place] s/p CABGx4 () Hypertension Hypercholesterolemia Nicotine dependence Plan: Troponins elevated x4 - peak [address] Garcia who performed cardiac cath. Cardiac cath report severe multiple vessel diseases. Heparin drip and repeat PCI by Dr. Garcia. Monitor vitals and for chest pain. Continue to telemetry. Dual antiplatelet per Dr. Garcia. Statin, metoprolol. Continue valsartan Dr. Garcia is considering repeat PCI on Saturday. VTE: On heparin drip Code: Full Home: Home upon discharge.
[2022-11-02] MEDS: HEPARIN/D5W 25,000 UNIT/500 ML BAG IV PRN (20:01)
[2022-11-02] MEDS: ATORVASTATIN 40 MG TAB PO SCH (20:01)
[2022-11-03 06:04] LABS: Absolute Lymphocytes (CBC) 2.7 K/uL (0.7-4.9); Hematocrit 42.5 % (36.0-45.0); Lymphocytes % 29.4 % (15.3-44.8); MCV 91.9 fL (80-100); Platelets 266 thou/uL (152-406); RBC Red Blood Cell Count 4.62 M/uL (3.86-4.86)
[2022-11-03 06:18] LABS: Magnesium 2.3 mg/dL (1.6-2.4); Potassium 4.1 mEq/L (3.5-5.1)
[2022-11-03] MEDS: CLOPIDOGREL 75 MG TABLET PO SCH (08:32)
[2022-11-03] MEDS: VALSARTAN 160 MG TAB PO SCH (08:32)
[2022-11-03] MEDS: ASPIRIN EC 81 MG TAB PO SCH (08:32)
[2022-11-03] MEDS: METOPROLOL TAR 50 MG TAB PO SCH ×2 (08:32→17:16)
[2022-11-03] MEDS: hydroCHLOROthiazide 25 MG TAB PO SCH (08:32)
[2022-11-03] MEDS: POLYETHYL GLY 3350 17 GM/DOSE PO SCH ×2 (08:33→20:15)
--- NOTE | 2022-11-03 10:17 | PN ---
Date of Progress Note: 11/02/2022 Subjective: Seen at bedside, no chest pain, resting comfortably. Review of Systems: No chest pain, shortness of breath, orthopnea, cough. No nausea, vomiting, diarrhea. No abdominal p ain. All other systems reviewed and they were negative. Physical Examination: Vital Signs: Reviewed. Head and Neck: Pupils are equal, reactive to light. Intact eye movements. No JVD. No cervical lym phadenopathy. Neck: Supple. Thyroid is not enlarged. Lungs: Clear to auscultation bilaterally. No rhonchi, rales, or crackles. No accessory muscle use. Heart: Regular rate and rhythm. No extra sounds. Abdomen: Soft, nontender. Bowel sounds positive. No organomegaly. No masses or hernia. No rigidi ty or rebound. Extremities: No edema, clubbing, or cyanosis. Intact pulses. Skin: No rash. Neurologic: Alert, awake, and oriented x3. . No acute focal deficits appreciated. Investigations: BUN 27, creatinine 0.96. PTT is therapeutic. Hemoglobin is 13.9. Assessment/recommendation: 1.Non-ST elevation myocardial infarction due to SVG graft stenosis with thrombosis that migrated to the coronary artery. Continue IV heparin and we will plan for coronary angiogram and PCI early Monda y morning. Continue aspirin and Plavix. 2.Dyslipidemia. Continue statin. 3.Hypertension. Blood pressure is controlled. Continue current management. /HANNA Voice ID: [id number] Report ID: [id number]
--- NOTE | 2022-11-03 12:19 | P.PN ---
Subjective Date of Service: 11/03/22 Chief Complaint: NSTEMI Patient has no new complaint. She denies any chest pain. Physical Examination - Vital Signs Temperature: 97.6 F Blood Pressure: 109/58 Pulse: 66 Respirations: 16 Pulse Ox (%): 95 Assessment And Plan - Plan Physical Exam: GEN: Alert, oriented, NAD HEENT: Normal conjunctiva, sclera anicteric CV: Regular rate and rhythm, no edema Pulm: Clear to auscultation bilaterally ABD: Soft, nontender, nondistended Neuro: Normal speech, normal affect vitals reviewed Problem List: NSTEMI; Unstable angina h/o [place] s/p CABGx4 () Hypertension Hypercholesterolemia Nicotine dependence Plan: Troponins elevated x4 - peak [address] Garcia who performed cardiac cath. Cardiac cath report severe multiple vessel diseases. Heparin drip and repeat PCI by Dr. Garcia. Monitor vitals and for chest pain. Continue to telemetry. Dual antiplatelet per Dr. Garcia. Statin, metoprolol. Continue valsartan Dr. Garcia is planning repeat PCI on Saturday. Monitor CBC. VTE: On heparin drip Code: Full Home: Home upon discharge.
[2022-11-03] MEDS: ATORVASTATIN 40 MG TAB PO SCH (20:17)
[2022-11-04 06:22] LABS: Magnesium 2.3 mg/dL (1.6-2.4); Potassium 4.3 mEq/L (3.5-5.1)
[2022-11-04] MEDS: HEPARIN/D5W 25,000 UNIT/500 ML BAG IV PRN (08:26)
[2022-11-04] MEDS: CLOPIDOGREL 75 MG TABLET PO SCH (08:26)
[2022-11-04] MEDS: ASPIRIN EC 81 MG TAB PO SCH (08:26)
[2022-11-04] MEDS: POLYETHYL GLY 3350 17 GM/DOSE PO SCH ×2 (08:27→20:23)
[2022-11-04] MEDS: hydroCHLOROthiazide 25 MG TAB PO SCH (08:27)
[2022-11-04] MEDS: METOPROLOL TAR 50 MG TAB PO SCH ×2 (08:34→17:03)
[2022-11-04] MEDS: VALSARTAN 160 MG TAB PO SCH (08:34)
--- NOTE | 2022-11-04 13:06 | P.PN ---
Subjective Date of Service: 11/04/22 Chief Complaint: NSTEMI Patient has no new complaint. She reports intermittent chest pain. She also reports anxiety. Physical Examination - Vital Signs Temperature: 97.4 F Blood Pressure: 113/65 Pulse: 66 Respirations: 16 Pulse Ox (%): 96 Assessment And Plan - Plan Physical Exam: GEN: Alert, oriented, NAD HEENT: Normal conjunctiva, sclera anicteric CV: Regular rate and rhythm, no edema Pulm: Clear to auscultation bilaterally ABD: Soft, nontender, nondistended Neuro: Normal speech, normal affect vitals reviewed Problem List: NSTEMI; Unstable angina h/o [place] s/p CABGx4 () Hypertension Hypercholesterolemia Nicotine dependence Plan: Troponins elevated x4 - peak [address] Garcia who performed cardiac cath. Cardiac cath report severe multiple vessel diseases. Heparin drip and repeat PCI by Dr. Garcia. Monitor vitals and for chest pain. Continue to telemetry. Dual antiplatelet per Dr. Garcia. Statin, metoprolol. Continue valsartan Dr. Garcia is planning repeat PCI tomorrow. NTG as needed Monitor CBC. VTE: On heparin drip Code: Full Home: Home upon discharge.
--- NOTE | 2022-11-04 15:57 | PN ---
Date of Progress Note: 11/04/2022 Subjective: Seen by bedside. No chest pain. On IV heparin. Review of Systems: No chest pain, shortness of breath, orthopnea, cough. No nausea, vomiting, diarrhea. All other syst ems reviewed and they were negative. Physical Examination: Vital Signs: Reviewed. Head and Neck: Pupils are equal, reactive to light. Intact eye movements. No JVD. No cervical lym phadenopathy. Neck is supple. Thyroid is not enlarged. Lungs: Clear to auscultation bilaterally. No rhonchi, wheezing, or crackles. No accessory muscle u se. Heart: Regular rate and rhythm. No extra sounds. Abdomen: Soft, nontender. Bowel sounds positive. No organomegaly. No masses or hernia. No rigidi ty or rebound. Extremities: No edema, clubbing, or cyanosis. Intact pulses. Skin: No rash. Neurologic: Alert, awake, oriented x3. No acute focal deficits appreciated. Investigations: BUN 23, creatinine 0.95, and her PTT has been therapeutic. Assessment And Recommendations: 1.Non-ST elevation myocardial infarction. The culprit being the SVG graft to OM with large thrombus burden. On anticoagulation for the past 4 days. Plan for coronary angiogram, percutaneous coronary intervention of the SVG graft tomorrow. To keep n.p.o. past midnight for the purpose. 2.Dyslipidemia. Continue high-dose statin, Lipitor 40 mg at bedtime. 3.Hypertension. Blood pressure is controlled. Continue current management. SR/MODL Voice ID: [id number] Report ID: [id number]
[2022-11-04] MEDS: ATORVASTATIN 40 MG TAB PO SCH (20:22)
[2022-11-05 03:56] LABS: Absolute Lymphocytes (CBC) 3.2 K/uL (0.7-4.9); Hematocrit 41.4 % (36.0-45.0); Lymphocytes % 34.6 % (15.3-44.8); MPV 8.3 fL (7.6-11.3); Platelets 277 thou/uL (152-406)
[2022-11-05 04:21] LABS: Potassium 4.2 mEq/L (3.5-5.1)
[2022-11-05] MEDS: METOPROLOL TAR 50 MG TAB PO SCH ×2 (08:00→19:00)
[2022-11-05] MEDS: CLOPIDOGREL 75 MG TABLET PO SCH (09:00)
[2022-11-05] MEDS: hydroCHLOROthiazide 25 MG TAB PO SCH (09:00)
[2022-11-05] MEDS: VALSARTAN 160 MG TAB PO SCH (09:00)
[2022-11-05] MEDS: POLYETHYL GLY 3350 17 GM/DOSE PO SCH ×2 (09:00→22:02)
[2022-11-05] MEDS: ASPIRIN EC 81 MG TAB PO SCH (09:00)
[2022-11-05] MEDS ORDERED: NA CHLORIDE 0.9% 500 ML ONE ×2 (13:26→18:10)
[2022-11-05] MEDS ORDERED: HEPA 1000U/500MLS 2,000 UNIT/1,000 ML BAG IV ONE (14:17)
[2022-11-05] MEDS ORDERED: FENTANYL CITR 100 MCG/2 ML ONE (14:18)
[2022-11-05] MEDS ORDERED: HEPARIN 10,000 UNIT/10 ML VIAL IV ONE (14:18)
[2022-11-05] MEDS ORDERED: ATROPINE SULF 1 MG/10 ML SYR IV ONE (14:18)
[2022-11-05] MEDS ORDERED: MIDAZOLAM HCL 2 MG/2 ML INJ ONE (14:18)
[2022-11-05] MEDS ORDERED: CLOPIDOGREL 75 MG TABLET ONE (14:20)
[2022-11-05] MEDS ORDERED: TICAGRELOR 90 MG TABLET PO ONE (14:20)
[2022-11-05] MEDS ORDERED: ASPIRIN 325 MG TAB ONE (14:20)
[2022-11-05] MEDS ORDERED: ASPIRIN 81 MG CHEWABLE TABLET ONE (16:22)
[2022-11-05] MEDS ORDERED: HEPA 1000U/500MLS 1,000 UNIT/500 ML BAG IV ONE (18:10)
[2022-11-05] MEDS ORDERED: LIDOCAINE 1% 20 ML MDV ONE (18:10)
--- NOTE | 2022-11-05 18:24 | P.PN ---
Subjective Date of Service: 11/05/22 Chief Complaint: NSTEMI Patient has no new complaint. Physical Examination - Vital Signs Temperature: 97.3 F Blood Pressure: 109/62 Pulse: 71 Respirations: 16 Pulse Ox (%): 98 Assessment And Plan - Plan Physical Exam: GEN: Alert, oriented, NAD HEENT: Normal conjunctiva, sclera anicteric CV: Regular rate and rhythm, no edema Pulm: Clear to auscultation bilaterally ABD: Soft, nontender, nondistended Neuro: Normal speech, normal affect vitals reviewed Problem List: NSTEMI; Unstable angina h/o [place] s/p CABGx4 () Hypertension Hypercholesterolemia Nicotine dependence Plan: Troponins elevated x4 - peak [address] Garcia who performed cardiac cath. Cardiac cath report severe multiple vessel diseases. Patient treated with heparin drip before repeat PCI by Dr. Garcia. Cardiac cath performed today. 2 stent placed accordingly to preliminary report Continue to telemetry. Dual antiplatelet per Dr. Garcia. Statin, metoprolol. Continue valsartan NTG as needed Monitor CBC. VTE: heparin drip Code: Full Home: Home upon discharge.
--- NOTE | 2022-11-05 19:21 | PN ---
Date of Progress Note: 11/05/2022 Subjective: Seen by bedside. She was doing well. No chest pain. Review of Systems: No chest pain, shortness of breath, orthopnea, cough. No nausea, vomiting, diarrhea. All other syst ems reviewed and they were negative. Physical Examination: Vital Signs: Reviewed. Head and Neck: Pupils are equal, reactive to light. Intact eye movements. No JVD. No cervical lym phadenopathy. Neck is supple. Thyroid is not enlarged. Lungs: Clear to auscultation bilaterally. No rhonchi, wheezing, or crackles. No accessory muscle u se. Heart: Regular rate and rhythm. No extra sounds. Abdomen: Soft, nontender. Bowel sounds positive. No organomegaly. No masses or hernia. No rigidi ty or rebound. Extremities: There is no edema, clubbing, or cyanosis. Intact pulses. Skin: No rash. Neurologic: Alert, awake, oriented x3. No acute focal deficits appreciated. Investigations: Labs were reviewed. Assessment And Recommendations: 1.Non-ST elevation myocardial infarction. The culprit is SVG graft to the OM. Plan for coronary an giogram today. On heparin for the past 4 days. Continue aspirin, Plavix, and high-dose statin. 2.Dyslipidemia. Continue statin. 3.Hypertension. Blood pressure is controlled. Continue current management. /HANNA Voice ID: [id number] Report ID: [id number]
--- NOTE | 2022-11-05 20:36 | OP ---
Date of Procedure: 11/05/2022 Surgeon: SERGIO CARRIZALES Procedures Performed: 1.Selective coronary angiogram, the SVG graft to OM. 2.PCI of proximal severe stenosis of that SVG graft, used 3.5 x 24 mm Synergy drug-eluting stent wit h the filter deployment. 3.PCI of distal SVG graft into the OM1 branch, I used 2.75 x 20 mm Synergy drug-eluting stent. Indication: [id number] myocardial infarction. Access: Right femoral artery 6-Malawian closed with StarClose. Complications: None. Bleeding: Less than 50 mL. Anesthesia: Total sedation time was 60 minutes. Description Of Procedure: After risks, benefits, alternatives were explained, the patient agreed to procedure and signed informed consent. Patient was brought into cardiac catheterization laboratory, prepped and draped in usual sterile fashion. Then I accessed right femoral artery using micropHairbobour e kit with ultrasound guidance, fluoroscopy, I placed 6-Malawian [place] sheath, took 6-Malawian JR4 bladimir de into the aortic root, engaged the SVG graft to the OM. An angiogram was performed and then I took a run-through wire into the SVG graft, placed it distally and I took a coronary filter and placed it distal to the lesion and then retrieved the run-through wire and then I took 3.5 x 24 mm Synergy chinedu g-eluting stent and deployed it across the area of stenosis and it expanded very well and then I nidhi tabitha the filter securely and then I took run-through wire back into the distal SVG graft into the OM a nd ballooned using 2.5 balloon to high pressure, expanded very well and the 99% stenosis resolved, so then I placed 2.75 x 20 mm Synergy drug-eluting stent into the OM and the distal portion of the SVG graft with excellent results. CESARIO-3 flow at the end and no complications. During this procedure, h eparin was given to assure ACT level above 250 throughout and she was re-loaded with Plavix and aspir in. I then removed the wire and the guide and the sheath and StarClose was used for closure with goo d hemostasis. Findings: 1.SVG graft to OM. Has proximal long 90% stenosis, status post successful PCI as above. 2.Distal SVG graft to OM has 99% stenosis, status post successful PCI of the SVG graft into the OM1 using 2.75 x 20 mm Synergy drug-eluting stent. Excellent results. Plan: Aspirin, Plavix, high-dose statin. SR/MODL Voice ID: [id number] Report ID: [id number]
[2022-11-05] MEDS: ATORVASTATIN 40 MG TAB PO SCH (22:02)
[2022-11-05] MEDS: ACETAMINOPHEN 500 MG TAB PO PRN (22:05)
[2022-11-05 22:38] VITALS: O2SAT 96
[2022-11-06] MEDS: CLOPIDOGREL 75 MG TABLET PO SCH (08:31)
[2022-11-06] MEDS: VALSARTAN 160 MG TAB PO SCH (08:31)
[2022-11-06] MEDS: METOPROLOL TAR 50 MG TAB PO SCH (08:31)
[2022-11-06] MEDS: hydroCHLOROthiazide 25 MG TAB PO SCH (08:32)
[2022-11-06] MEDS: POLYETHYL GLY 3350 17 GM/DOSE PO SCH (08:32)
[2022-11-06] MEDS: ASPIRIN EC 81 MG TAB PO SCH (08:32)
[2022-11-06 08:34] VITALS: BP 132/69
--- NOTE | 2022-11-06 09:07 | P.DS ---
Admission Date: 10/28/22 Discharge Date: 11/06/22 Disposition: ROUTINE DISCHARGE Reason for Admission: NSTEMI Consultations: Cardiology - Dr. Garcia Brief History of Present Illness: 71 yo F, PMH: Hypertension, Hypercholesterolemia, h/o of [place] s/p CABGx4 (), current smoker Presents to ED due to 2 days of intermittent chest pressure/tightness. Symptoms began while sitting down on her cough. Her chest pressure is substernal and lasts a few seconds to minutes and has ~3-4 episodes a day. She reports prior [place] and had CABGx4 in , continues to smoke, currently down to 1/2 ppd. Takes aspirin 325mg and anti-hypertensive medications. Recently saw Dr. Garcia ~3 months ago for routine check up. She reports undergoing echo and stress test which she was told were normal. Denies any recent fever, no rashes. Denies UTI symptoms. No n/v/d. No shortness of breath. No edema. Denies vision changes. Dr. Garcia notified and will see as consult. In the ED, labwork was rather unremarkable except for troponin: 550, BNP: 1049. Chest xray was negative for any acute abnormalities. Hospital Course: Problem List: NSTEMI; Unstable angina secondary to CAD - 99% and 90% stenosis of SVG to OM graft. h/o [place] s/p CABGx4 () Hypertension Hypercholesterolemia Nicotine dependence Patient presented with chest pain. She was found to have NSTEMI with elevated troponins. Cardiology performed cardiac catheterization and noted stenosis of prior bypass grafts. She was placed on heparin drip and underwent 2nd cardiac cath on 11/05 where she had 2 stents placed in her SVG to OM graft. She tolerated the procedure well and was stable for discharge home. Medications: New: Plavix Change: decrease aspirin from 325 mg to 81mg daily Change: Atorvastatin increased from 40mg to 80mg Continue other home medications Follow up: Dr. Garcia in 1 week PCP within 1 week Physical Exam: GEN: Alert, oriented, NAD HEENT: Normal conjunctiva, sclera anicteric CV: Regular rate and rhythm, no edema Pulm: Clear to auscultation bilaterally ABD: Soft, nontender, nondistended Neuro: Normal speech, normal affect Vital Signs/Physical Exam: Temp Pulse Resp BP Pulse Ox 97.7 F 72 18 132/69 96 11/06/22 04:00 08/15/23 08:32 11/06/22 04:00 11/06/22 08:32 11/06/22 04:00 Laboratory Data at Discharge: WBC 9.10 thou/uL (4.3-10.9) 11/05/22 02:40 Hgb 14.1 g/dL (12.0-15.0) 11/05/22 02:40 Hct 41.4 % (36.0-45.0) 11/05/22 02:40 Plt Count 277 thou/uL (152-406) 11/05/22 02:40 APTT 54.3 SECONDS (24.3-36.9) H 11/05/22 02:40 Sodium 137 mEq/L (136-145) 11/05/22 02:40 Potassium 4.2 mEq/L (3.5-5.1) 11/05/22 02:40 BUN 26 mg/dL (7-18) H 11/05/22 02:40 Creatinine 0.96 mg/dL (0.55-1.02) 11/05/22 02:40 Glucose 108 mg/dL (74-106) H 11/05/22 02:40 Magnesium 2.3 mg/dL (1.6-2.4) 11/04/22 05:20 Total Bilirubin 0.4 mg/dL (0.2-1.0) 10/28/22 12:15 AST 27 U/L (15-37) 10/28/22 12:15 ALT 30 U/L (13-56) 10/28/22 12:15 Alkaline Phosphatase 97 U/L (45-117) 10/28/22 12:15 Home Medications: Metoprolol Tartrate [Lopressor*] 50 mg PO BID 10/28/22 Valsartan/Hydrochlorothiazide [Valsartan-Hctz 160-25 mg Tab] 1 tab PO DAILY 10/28/22 Aspirin [Aspirin EC 81 MG] 81 mg PO DAILY 30 Days #30 tab 11/06/22 Atorvastatin Calcium [Lipitor] 80 mg PO BEDTIME 30 Days #30 tab 11/06/22 Clopidogrel Bisulfate [Plavix*] 75 mg PO DAILY 30 Days #30 tab 11/06/22 New Medications: Aspirin [Aspirin EC 81 MG] 81 mg PO DAILY 30 Days #30 tab Atorvastatin Calcium [Lipitor] 80 mg PO BEDTIME 30 Days #30 tab Clopidogrel Bisulfate [Plavix*] 75 mg PO DAILY 30 Days #30 tab Physician Discharge Instructions: Patient presented with chest pain. She was found to have NSTEMI with elevated troponins. Cardiology performed cardiac catheterization and noted stenosis of prior bypass grafts. She was placed on heparin drip and underwent 2nd cardiac cath on 11/05 where she had 2 stents placed in her SVG to OM graft. She tolerated the procedure well and was stable for discharge home. Medications: New: Plavix Change: decrease aspirin from 325 mg to 81mg daily Change: Atorvastatin increased from 40mg to 80mg Continue other home medications Follow up: Dr. Garcia in 1 week PCP within 1 week Followup: Rip Garcia MD [ACTIVE - CAN ADMIT] - (call to schedule appointment) Time spent managing pt's care (in minutes): 45
[2022-11-06 09:44] VITALS: TEMP 98.1
== END 2022-11-06 10:00 | disposition home or self-care (01) | DRG 247 ==
LOC: ER 11:51 → ERHOLD 15:33 → 2ND 16:31
PROVIDERS: ADMIT Hospitalist; ATTEND Hospitalist
PROC: 4A023N7 Measurement of Cardiac Sampling and Pressure, Left Heart, Percutaneous Approach (ICD-10-PCS; 2022-10-30)
PROC: B2111ZZ Fluoroscopy of Multiple Coronary Arteries using Low Osmolar Contrast (ICD-10-PCS; 2022-10-30)
PROC: 027035Z Dilation of Coronary Artery, One Artery with Two Drug-eluting Intraluminal Devices, Percutaneous Approach (ICD-10-PCS; principal; 2022-11-05)
DX: I21.4 Non-ST elevation (NSTEMI) myocardial infarction (principal); I10 Essential (primary) hypertension; M41.9 Scoliosis, unspecified; F41.9 Anxiety disorder, unspecified; E78.00 Pure hypercholesterolemia, unspecified; I25.110 Atherosclerotic heart disease of native coronary artery with unstable angina pectoris; F17.210 Nicotine dependence, cigarettes, uncomplicated; I25.2 Old myocardial infarction; Z95.1 Presence of aortocoronary bypass graft; Z95.5 Presence of coronary angioplasty implant and graft; Z79.82 Long term (current) use of aspirin; Z79.899 Other long term (current) drug therapy
CPT/HCPCS: 36415; 71045; 76937; 80048; 80076; 81001; 83735; 83880; 84132; 84484; 85025; 85347; 85730; 92978; 93005; 93306; 93454; 93460; 94760; 96372; 99285; C1725; C1893; C9600; C9601; J0461; J1644; J2001; J2250; J3010; J3480; J7030; J7040; Q9966; Q9967